=== PATIENT | female | born 1980 | race Two or more races ===

== ENCOUNTER 2018-11-28 20:19 | Emergency (ER) | payer SELFPAY ==
[~2018-11-28] VITALS: Ht 162.6 cm; Wt 99.8 kg
[2018-11-28] MEDS ORDERED: IBUPROFEN600 MG ORAL ×2 (20:55→23:26)
[2018-11-28 21:00] VITALS: BP 127/86
--- NOTE | 2018-11-28 21:00 | NUR ---
ED Nurse Note: pt was brought in by 68 from [facility] c/o ankle pain and hand pain x 1 week
--- NOTE | 2018-11-28 21:39 | Emergency Room Report ---
History of Present Illness General Chief Complaint: Pain Source: Patient Present Illness HPI Is a 38-year-old female with history of asthma. She has no diagnosis of an autoimmune disease. She presents with chief complaint of joint pain and foot pain. Onset for last 2 weeks now. No trauma. Throbbing in nature. Powell like her joints or swelling. Most her pain is not left foot and knee area. Pain is 10 out of 10. No trauma. No fever chills but no nausea no vomiting. She said her joints or swollen. Denies any recent viral infection. Allergies: Coded Allergies: No Known Allergies (Unverified , 11/28/18) Patient History Past Medical History: see triage record, old chart reviewed, asthma Past Surgical History: none Pertinent Family History: none Social History: Denies: smoking Last Menstrual Period: oct Now: No Immunizations: other Reviewed Nursing Documentation: PMH: Agreed; PSxH: Agreed Nursing Documentation-PMH Hx Asthma: Yes Hx Neurological Problems: Yes - cyatica Review of Systems Eye: Denies: eye pain, blurred vision ENT: Denies: ear pain, nose congestion, throat swelling Respiratory: Denies: cough, shortness of breath Cardiovascular: Denies: chest pain, palpitations Gastrointestinal: Denies: abdominal pain, diarrhea, nausea, vomiting Musculoskeletal: Reports: back pain, joint pain, joint swelling Skin: Denies: rash Neurological: Denies: headache, numbness Endocrine: Denies: increased thirst, increased urine Hematologic/Lymphatic: Denies: easy bruising All Other Systems: negative except mentioned in HPI Physical Exam Vital Signs Date Time Temp Pulse Resp B/P (MAP) Pulse Ox O2 Delivery O2 Flow Rate FiO2 11/28/18 20:52 98.8 80 16 127/86 100 Room Air vitals unremarkable Sp02 EP Interpretation: reviewed, normal General Appearance: well appearing, no apparent distress, alert Head: normocephalic, atraumatic Eyes: bilateral eye PERRL, bilateral eye EOMI ENT: hearing grossly normal, normal pharynx Neck: full range of motion, supple, no meningismus Respiratory: chest non-tender, lungs clear, normal breath sounds Cardiovascular #1: regular rate, rhythm, no murmur Gastrointestinal: normal bowel sounds, non tender, no mass, no organomegaly, no bruit, non-distended Musculoskeletal: back normal, other - She has diffuse joint edema mostly on the hands and ankle. Tender to palpation. No erythema. Psychiatric: mood/affect normal Skin: warm/dry Medical Decision Making Diagnostic Impression: Primary Impression: Polyarthralgia ER Course Patient presents with poly-joint arthralgia. This is probably an autoimmune disease. No evidence of septic joint. Inflammatory markers elevated. We'll discharge home. She will benefit from a rheumatology consult. Last Vital Signs Date Time Temp Pulse Resp B/P (MAP) Pulse Ox O2 Delivery O2 Flow Rate FiO2 11/28/18 20:52 98.8 80 16 127/86 100 Room Air Status: improved Disposition: HOME, SELF-CARE Condition: Stable Scripts Prednisone* (PREDNISONE*) 20 Mg Tablet 40 MG ORAL DAILY, #14 TAB Prov: Igor London MD 11/28/18 Ibuprofen* (MOTRIN*) 600 Mg Tablet 600 MG ORAL THREE TIMES A DAY, #30 TAB 0 Refills Prov: Igor London MD 11/28/18 Hydrocodone/Acetaminophen 5-325* (HYDROCODONE/ACETAMINOPHEN 5-325*) 1 Each Tablet 1 TAB ORAL Q6H PRN for For Pain, #20 TAB 0 Refills Prov: Igor London MD 11/28/18 Additional Instructions: Follow-up with your doctor in a week. You may benefit from referral to see a system administration manager to check for autoimmune disease. Return if symptom worsen. Igor London MD Nov 28, 2018 21:39
[2018-11-28] MEDS ORDERED: Dexamethasone 4mg/ml vial IVP ONE (21:45)
[2018-11-28] MEDS ORDERED: HYDROmorphone 1mg/ml Carpuject IVP ONE ×2 (21:45→23:15)
[2018-11-28 21:51] LABS: BASOPHILS % (AUTO) 0.9 % (0.0-2.0); EOSINOPHILS % (AUTO) 2.1 % (0.0-3.0); HEMATOCRIT 40.5 % (37.0-47.0); HEMOGLOBIN 13.5 G/DL (12.0-16.0); LYMPHOCYTES % (AUTO) 15.2 % (20.0-45.0); MEAN CORPUSCULAR VOLUME 88 FL (80-99); MONOCYTES % (AUTO) 4.3 % (1.0-10.0); NEUTROPHILS % (AUTO) 77.5 % (45.0-75.0); PLATELET COUNT 439 K/UL (150-450); RED BLOOD COUNT 4.59 M/UL (4.20-5.40); RED CELL DISTRIBUTION WIDTH 11.9 % (11.6-14.8); WHITE BLOOD COUNT 10.4 K/UL (4.8-10.8)
[2018-11-28 22:03] LABS: ANION GAP 10 mmol/L (5-15); BLOOD UREA NITROGEN 11 mg/dL (7-18); CALCIUM 9.5 MG/DL (8.5-10.1); CARBON DIOXIDE 25 MMOL/L (21-32); CHLORIDE 103 MMOL/L (98-107); CREATININE 0.7 MG/DL (0.55-1.30); POTASSIUM 3.5 MMOL/L (3.5-5.1); SODIUM 137 MMOL/L (136-145)
[2018-11-28 22:07] LABS: ALANINE AMINOTRANSFERASE 20 U/L (12-78); ALBUMIN 3.9 G/DL (3.4-5.0); ALBUMIN/GLOBULIN RATIO 0.9 (1.0-2.7); ALKALINE PHOSPHATASE 59 U/L (46-116); ASPARTATE AMINO TRANSFERASE 13 U/L (15-37); BILIRUBIN,TOTAL 0.2 MG/DL (0.2-1.0)
[2018-11-28] MEDS ORDERED: HYDROCODON-ACE1 EA15 ORAL (23:26)
[2018-11-28] MEDS ORDERED: PREDNISONE20 MG ORAL (23:26)
[2018-11-28 23:34] VITALS: BP 125/84
--- NOTE | 2018-11-28 23:34 | NUR ---
ER DISCHARGE NOTE: Patient is cleared to be discharged per ERMD, pt is aox4, on room air, with stable vital signs. pt was given dc and prescription instructions, pt was able to verbalize understanding, pt id band and iv site removed without complications. pt is able to ambulate with steady gait. pt took all belongings.
== END 2018-11-28 23:32 | disposition home or self-care (01) ==
LOC: EDBD 20:19 → EMR 22:00
DX: M25.50 Pain in unspecified joint (principal); J45.909 Unspecified asthma, uncomplicated
CPT/HCPCS: 36415; 80053; 85025; 85651; 86140; 96374; 96375; 96376; 99284; J1100; J1170; J2405

== ENCOUNTER 2018-12-07 10:08 | Inpatient (IN) | payer SELFPAY ==
[~2018-12-07] VITALS: Ht 162.6 cm; Wt 99.8 kg
[~2018-12-07 10:08] MED LIST: HYDROCODON-ACE1 EA15 ORAL; IBUPROFEN600 MG ORAL; PREDNISONE20 MG ORAL
[2018-12-07 10:33] VITALS: BP 125/68
--- NOTE | 2018-12-07 10:35 | NUR ---
ED Nurse Note: pt aao x4, walked in to ER c/o general body pain 10/10. accompanied by mother. calm and cooperative. general body non-pitting edema noted.
[2018-12-07] MEDS ORDERED: Solu-MEDROL 125mg Inj IVP ONE (11:00)
[2018-12-07] MEDS ORDERED: Ketorolac 30mg Inj IV ONE (11:00)
[2018-12-07] MEDS ORDERED: Morphine Sulfate 4mg/ml Inj (IV USE ONLY) IVP ONE (11:00)
[2018-12-07 11:18] LABS: APPEARANCE,URINE CLEAR; BILIRUBIN, URINE NEGATIVE (NEGATIVE); COLOR,URINE PALE YELLOW; GLUCOSE, URINE (UA) NEGATIVE (NEGATIVE); KETONES,URINE NEGATIVE (NEGATIVE); LEUKOCYTE ESTERASE ,URINE NEGATIVE (NEGATIVE); NITRITE,URINE NEGATIVE (NEGATIVE); PH,URINE 7 (4.5-8.0); PROTEIN,URINE NEGATIVE (NEGATIVE); UROBILINOGEN,URINE NORMAL MG/DL (0.0-1.0)
[2018-12-07 11:25] LABS: EOSINOPHILS % (AUTO) 3.5 % (0.0-3.0); HEMATOCRIT 39.9 % (37.0-47.0); HEMOGLOBIN 13.2 G/DL (12.0-16.0); LYMPHOCYTES % (AUTO) 18.3 % (20.0-45.0); MEAN CORPUSCULAR VOLUME 89 FL (80-99); MONOCYTES % (AUTO) 6.8 % (1.0-10.0); NEUTROPHILS % (AUTO) 70.4 % (45.0-75.0); PLATELET COUNT 370 K/UL (150-450); RED BLOOD COUNT 4.49 M/UL (4.20-5.40); RED CELL DISTRIBUTION WIDTH 12.1 % (11.6-14.8)
[2018-12-07 11:37] LABS: ANION GAP 13 mmol/L (5-15); BLOOD UREA NITROGEN 11 mg/dL (7-18); CALCIUM 9.1 MG/DL (8.5-10.1); CARBON DIOXIDE 24 MMOL/L (21-32); CHLORIDE 100 MMOL/L (98-107); CREATININE 0.7 MG/DL (0.55-1.30); POTASSIUM 4.4 MMOL/L (3.5-5.1); SODIUM 137 MMOL/L (136-145)
[2018-12-07 11:42] LABS: INR 0.9 (0.9-1.1)
[2018-12-07 11:48] LABS: ALANINE AMINOTRANSFERASE 19 U/L (12-78); ALBUMIN 3.4 G/DL (3.4-5.0); ALBUMIN/GLOBULIN RATIO 0.8 (1.0-2.7); ALKALINE PHOSPHATASE 43 U/L (46-116); ASPARTATE AMINO TRANSFERASE 11 U/L (15-37); BILIRUBIN,TOTAL 0.3 MG/DL (0.2-1.0); CREATINE KINASE 89 U/L (26-308)
[2018-12-07 12:00] VITALS: BP 141/75
--- NOTE | 2018-12-07 12:23 | Diagnostic Imaging Report ---
EXAM: XR Chest, 1 View CLINICAL HISTORY: CP TECHNIQUE: Frontal view of the chest. COMPARISON: No relevant prior studies available. FINDINGS: Lungs: Unremarkable. No consolidation. Pleural space: Unremarkable. No pneumothorax. Heart: Unremarkable. No cardiomegaly. Mediastinum: Unremarkable. Bones/joints: Unremarkable. IMPRESSION: Normal chest x-ray.
--- NOTE | 2018-12-07 12:38 | Diagnostic Imaging Report ---
EXAM: XR Left Hand Complete, 3 or More Views CLINICAL HISTORY: PAIN TECHNIQUE: Frontal, lateral and oblique views of the left hand. COMPARISON: No relevant prior studies available. FINDINGS: Bones/joints: Joint spaces are maintained. No acute fracture. No dislocation. Soft tissues: Soft tissue swelling. No radiopaque foreign body. IMPRESSION: 1. Soft tissue swelling. 2. No fracture or malalignment.
--- NOTE | 2018-12-07 13:10 | NUR ---
ED Nurse Note: Attempted to give report. nurse is not available. will try again in 10 minutes.
--- NOTE | 2018-12-07 13:30 | NUR ---
ED Nurse Note: Report given to Ann RN
[2018-12-07] MEDS ORDERED: Morphine Sulfate 4mg/ml Inj (IV USE ONLY) IVP PRN (13:45)
--- NOTE | 2018-12-07 14:11 | NUR ---
ED Nurse Note: pt transferred to MS unit with 1 compressor service technician after got another dose of 4mg Morphin IVP.
--- NOTE | 2018-12-07 14:49 | NUR ---
NURSE NOTES: received patient A/A/Ox4, able to make things known. roommate @ bedside. personal belongings reviewed and noted. IV access patent and intact. admission profile done. home meds done by ED, Elena. Left hand swollen, elevated with pillow. no acute resp distress noted. keep bed in the lowest position. siderails are up x2. call light is within reach. will cont to monitor.
[2018-12-07 15:00] VITALS: BP 111/71
--- NOTE | 2018-12-07 15:00 | NUR ---
NURSE NOTES: called Dr Abdi and spoke with Elizabeth from his office. Re; admission orders. awaiting for a call back. Addendum: 12/07/18 at 1551 by PAYAM NARVAEZ LVN NURSE NOTES: notified Dr Abdi for the second time for admission orders. awaits for a callback.
[2018-12-07] MEDS ORDERED: HYDROcodone/Acetamin 5/325 tab ORAL PRN (16:15)
--- NOTE | 2018-12-07 16:25 | Emergency Room Report ---
History of Present Illness General Chief Complaint: Pain Source: Patient Present Illness HPI The patient repeat presents with joint pain. She was seen here November 28 and says that she was evaluated and told that she does not have lupus (I cannot find serology). She had right wrist tenderness of redness and bumps. This was treated just with prednisone Grethel and Motrin. At wrist is improved somewhat. She's been trying to work but now has increased pain in her ankles knees and bilateral wrists. In addition her left thumb is now red and swollen and her hand is swollen also. She is unable to ambulate at this time without assistance. She was working yesterday at [employer]. Pain is rated 10/10. The left hand hurts more than her wrists knees and ankles but they are still also tender. The pain is aching and burning. There is slight radiation of the left hand pain into the forearm. She denies any trauma. The patient's has had chills. She denies having any fevers. No chest pain, nausea, dysuria, vomiting, headache, neck pain, abdominal pain. Family has a history of arthritis but not diagnosed with rheumatoid or other inherited arthritic conditions. The patient is quite upset about her disability. She is worried that she will not be able to walk and work. Allergies: Coded Allergies: No Known Allergies (Unverified , 11/28/18) Patient History Past Medical History: see triage record Social History: Reports: smoking; Denies: alcohol use, drug use Social History Narrative works at [employer] Last Menstrual Period: Oct Now: No : 1 Reviewed Nursing Documentation: PMH: Agreed; PSxH: Agreed Nursing Documentation-PMH Hx Cardiac Problems: No Hx Asthma: Yes Hx Cancer: No Hx Gastrointestinal Problems: Yes Hx Neurological Problems: No Review of Systems All Other Systems: negative except mentioned in HPI Physical Exam Vital Signs Date Time Temp Pulse Resp B/P (MAP) Pulse Ox O2 Delivery O2 Flow Rate FiO2 12/07/18 10:13 98.4 89 15 134/88 99 Room Air Sp02 EP Interpretation: reviewed, normal General Appearance: well appearing, no apparent distress, GCS 15 Head: normocephalic Eyes: bilateral eye normal inspection, bilateral eye PERRL ENT: moist mucus membranes Neck: supple Respiratory: lungs clear, normal breath sounds Cardiovascular #1: regular rate, rhythm Cardiovascular #2: 2+ radial (R) Gastrointestinal: normal inspection, normal bowel sounds, non tender, no mass, non-distended Musculoskeletal: back normal, no calf tenderness, decreased range of motion - Ankles and left thumb, swelling - Left thenar eminence, tender - Left thumb greater than wrists knees and ankles however all are tender. Neurologic: alert, oriented x3, grossly normal Psychiatric: depressed affect - Tearful and fearful Skin: normal color, warm/dry, other - erythema L thumb Medical Decision Making Diagnostic Impression: Primary Impression: Arthritis pain Additional Impression: Cellulitis Qualified Codes: L03.114 - Cellulitis of left upper limb ER Course Patient presents with polyarthritis and increased swelling and erythema of her left thumb. Differential includes lupus, rheumatoid arthritis, cellulitis versus septic joint of the left thumb amongst others. Evaluation will be with labs and x-ray of left hand. The patient will be treated with Solu-Medrol, Toradol. In addition blood cultures are obtained and she is started on vancomycin. EKG is obtained to exclude pericarditis. EKG normal. Chest x-ray no infiltrates. Left hand soft tissue swelling. CBC and CMP normal. Elevated sedimentation rate and C-reactive protein. Improved with decreased pain. Due to the possibility of debilitating and infection and debilitating polyarthritis the patient is admitted to the hospital for further evaluation and treatment. Admit med Dr. Abdi. Message left for Paco Brambila to request his consultation as a meeting specialist. Laboratory Tests Test 12/07/18 11:00 12/07/18 11:10 12/07/18 11:45 White Blood Count 9.0 K/UL (4.8-10.8) Red Blood Count 4.49 M/UL (4.20-5.40) Hemoglobin 13.2 G/DL (12.0-16.0) Hematocrit 39.9 % (37.0-47.0) Mean Corpuscular Volume 89 FL (80-99) Mean Corpuscular Hemoglobin 29.3 PG (27.0-31.0) Mean Corpuscular Hemoglobin Concent 33.0 G/DL (32.0-36.0) Red Cell Distribution Width 12.1 % (11.6-14.8) Platelet Count 370 K/UL (150-450) Mean Platelet Volume 6.6 FL (6.5-10.1) Neutrophils (%) (Auto) 70.4 % (45.0-75.0) Lymphocytes (%) (Auto) 18.3 % (20.0-45.0) L Monocytes (%) (Auto) 6.8 % (1.0-10.0) Eosinophils (%) (Auto) 3.5 % (0.0-3.0) H Basophils (%) (Auto) 1.0 % (0.0-2.0) Prothrombin Time 9.7 SEC (9.30-11.50) Prothrombin Time INR 0.9 (0.9-1.1) PTT 22 SEC (23-33) L Urine Color Pale yellow Urine Appearance Clear Urine pH 7 (4.5-8.0) Urine Specific Cassandra 1.005 (1.005-1.035) Urine Protein Negative (NEGATIVE) Urine Glucose (UA) Negative (NEGATIVE) Urine Ketones Negative (NEGATIVE) Urine Blood Negative (NEGATIVE) Urine Nitrite Negative (NEGATIVE) Urine Bilirubin Negative (NEGATIVE) Urine Urobilinogen Normal MG/DL (0.0-1.0) Urine Leukocyte Esterase Negative (NEGATIVE) Urine HCG, Qualitative Negative (NEGATIVE) Sodium Level 137 MMOL/L (136-145) Potassium Level 4.4 MMOL/L (3.5-5.1) Chloride Level 100 MMOL/L (98-107) Carbon Dioxide Level 24 MMOL/L (21-32) Anion Gap 13 mmol/L (5-15) Blood Urea Nitrogen 11 mg/dL (7-18) Creatinine 0.7 MG/DL (0.55-1.30) Estimate Glomerular Filtration Rate > 60 mL/min (>60) Glucose Level 91 MG/DL (74-106) Uric Acid 3.8 MG/DL (2.6-7.2) Calcium Level 9.1 MG/DL (8.5-10.1) Total Bilirubin 0.3 MG/DL (0.2-1.0) Aspartate Amino Transferase (AST) 11 U/L (15-37) L Alanine Aminotransferase (ALT) 19 U/L (12-78) Alkaline Phosphatase 43 U/L (46-116) L Total Creatine Kinase 89 U/L (26-308) Troponin I 0.000 ng/mL (0.000-0.056) C-Reactive Protein, Quantitative 4.4 mg/dL (0.00-0.90) H Pro-B-Type Natriuretic Peptide 39 pg/mL (0-125) Total Protein 7.8 G/DL (6.4-8.2) Albumin 3.4 G/DL (3.4-5.0) Globulin 4.4 g/dL Albumin/Globulin Ratio 0.8 (1.0-2.7) L Lactic Acid Level 1.20 mmol/L (0.4-2.0) Erythrocyte Sedimentation Rate 44 MM/HR (0-20) H EKG Diagnostic Results Rate: normal Rhythm: NSR ST Segments: no acute changes Rhythm Strip Diag. Results EP Interpretation: yes Rhythm: NSR, no PVC's, no ectopy Chest X-Ray Diagnostic Results Chest X-Ray Diagnostic Results : Chest X-Ray Ordered: Yes # of Views/Limited/Complete: 1 View Indication: Other EP Interpretation: Yes Interpretation: no consolidation, no effusion, no pneumothorax Impression: No acute disease Electronically Signed by: Electronically signed by Roberto Carlos Arnett MD Other X-Ray Diagnostic Results Other X-Ray Diagnostic Results : X-Ray ordered: Left-hand # of Views/Limited Vs Complete: 3 View Interpretation: no dislocation, no fractures, other - Soft tissue swelling Impression: Other Electronically Signed by: Electronically signed by Roberto Carlos Arnett MD Last Vital Signs Date Time Temp Pulse Resp B/P (MAP) Pulse Ox O2 Delivery O2 Flow Rate FiO2 12/07/18 15:00 98.2 83 20 111/71 (84) 97 12/07/18 14:10 Room Air Status: improved Disposition: ADMITTED INPATIENT Condition: Serious Referrals: NON PHYSICIAN (PCP) Roberto Carlos Arnett MD Dec 07, 2018 16:25
--- NOTE | 2018-12-07 16:59 | NUR ---
CASE MANAGEMENT: INITIAL REVIEW 38 YO F PRESENTED TO OUR ED FROM HOME CC: PAIN PMHx: ASTHMA. SCIATICA. SI:SEPTIC JOINT T 98.4 HR 89 RR 15 B/P 134/88 SATS 99% ON RA AST 11 ALP 43 IS: NS BOLUS X1 MORPHINE IV X1 ZOFRAN IV X1 TORADOL IV X1 SOLU MEDROL IV X1 PATIENT ADMITTED TO MED/SURG 12/07/2018 @ 1249 DCP: PATIENT TO BE DISCHARGED TO HOME ONCE MEDICALLY CLEARED. Addendum: 12/07/18 at 1912 by Cinthya Fitch CM [employer] SECOND[employer]
[2018-12-07] MEDS: Vancomycin 1.5gm/D5W 275ml IVPB SCH ×2 (17:59)
--- NOTE | 2018-12-07 19:25 | NUR ---
HAND-OFF: Report given to
--- NOTE | 2018-12-07 19:26 | NUR ---
NURSE NOTES: Report taken from JARROD Ferguson. Patient awake and in bed, A&Ox4, family at bedside. No signs of distress on room air. Is complaining of generalized pain. Most of the pain is in the right hand, tender to the touch, 8/10. Is having some radiating pain through the right leg, some minor swelling noted. IV site c/d/i and patent. No skin issues present. Continue to monitor pain and swelling, bed in lowest position, call light within reach.
[2018-12-07 20:00] VITALS: BP 130/69
[2018-12-07] MEDS ORDERED: Solu-MEDROL 40mg Inj IVP SCH (21:30)
[2018-12-07] MEDS: Piperacillin/Tazobactam 3.375 GM in D5W 110 ML IVPB SCH ×2 (23:35→23:53)
[2018-12-08] VITALS: BP 136/71
--- NOTE | 2018-12-08 01:45 | History and Physical Report ---
DATE OF ADMISSION: 12/07/2018 ADDENDUM: Currently unable to walk because of knee pain and ankle pain, also right hand, unable to close. PAST MEDICAL HISTORY: None known. PHYSICAL EXAMINATION: GENERAL: This is an elderly, obese female, who is currently in the bed, comfortable. VITAL SIGNS: Blood pressure is 100/40 and pulse 74. HEENT: NAD. CHEST: Bilaterally clear. CARDIOVASCULAR: Regular rhythm. No gallop. No murmur. ABDOMEN: Soft. EXTREMITIES: No CCE. Diffuse tenderness on the right wrist, right hand, and right ankle as well as knee. ASSESSMENT: 1. Possible septic arthritis. 2. Gout. PLAN: We will start her on IV Solu-Medrol and [place]. Consider Hematology consult. Rei Abdi M.D. DR: BLAS JOB#: [id number] CC:
[2018-12-08 04:00] VITALS: BP 112/66
[2018-12-08] MEDS: Morphine Sulfate 2mg/ml Inj(IV/IM USE ONLY) IVP PRN ×2 (06:02→16:12)
[2018-12-08] MEDS: Vancomycin 1.5gm/D5W 275ml IVPB SCH ×2 (06:10)
--- NOTE | 2018-12-08 07:30 | NUR ---
HAND-OFF: Report given to JARROD Cabrera. Patient awake, VS stable.
[2018-12-08 08:00] VITALS: BP 116/69
[2018-12-08] MEDS ORDERED: Piperacillin/Tazobactam 3.375 GM in D5W 110 ML IVPB SCH (08:00)
--- NOTE | 2018-12-08 08:26 | NUR ---
NURSE NOTES: Pt awake, breathing room air, call light in reach. Friend at bedside. Denies pain at this time. Able to verbalize known needs. Pt is ambulatory. Encouraged to walk to loosen joint stiffness. Current plan of care will be followed
[2018-12-08] MEDS: Solu-MEDROL 40mg Inj IVP SCH (08:53)
--- NOTE | 2018-12-08 13:51 | NUR ---
NURSE NOTES: PT CURRENTLY SITTING UP IN BED. NO COMPLAINTS AT THIS TIME. CALL LIGHT IS IN REACH. PT REQUESTED A DR EXCUSE FROM DR DEL ANGEL , PROVIDED BY HIM. PT REFERRED TO FOOD PROCESSOR. OUTBOARD SYSTEM OPERATOR GAVE PT SPECIALIST NUMBER TO PT .
--- NOTE | 2018-12-08 14:55 | NUR ---
CASE MANAGEMENT:REVIEW 12/08/18 SI: POSSIBLE SEPTIC ARTHRITIS 98.3 79 18 116/69 99% ON RA IS: IV SOLUMEDROL QD IV VANCOMYCIN Q12 IV MORPHINE Q6HRS PRN :MED/SURG [facility]
--- NOTE | 2018-12-08 15:00 | NUR ---
NURSE NOTES: PT HAS PENDING DISCHARGE AFTER CLEARED BY PT. PT IS CURRENTLY COMFORTABLE CALL LIGHT IS IN REACH. CURRENT PLAN OF CARE WILL BE FOLLOWED
--- NOTE | 2018-12-08 15:38 | Infectious Diseases Prog Note ---
Assessment/Plan Problems: (1) Wrist joint inflamed Assessment & Plan: septic VS inflammatory , continue vancomycin and zosyn empirically , recommend ortho eval for possible joint aspiration (2) Hand arthritis Assessment & Plan: RA VS lupus VS gout flare , VS septic joints , continue wide spectrum antibiotics pending RA, LISSETT, recommend ortho eval (3) Arthritis pain Assessment & Plan: continue pain management as per primary (4) Cellulitis Assessment & Plan: of the right hand/wrist , inflammatory VS infectious , agree on wide spectrum antibiotics pending serology and ortho eval Subjective Allergies: Coded Allergies: No Known Allergies (Unverified , 11/28/18) Objective Vital Signs Last 24 Hour Vital Signs Date Time Temp Pulse Resp B/P (MAP) Pulse Ox O2 Delivery O2 Flow Rate FiO2 12/08/18 09:00 Room Air 12/08/18 08:00 98.3 79 18 116/69 (85) 99 12/08/18 04:00 98.3 77 18 112/66 (81) 100 12/08/18 00:00 98.2 98 18 136/71 (92) 95 12/07/18 22:39 Room Air 12/07/18 20:00 99.3 84 18 130/69 (89) 99 Height (Feet): 5 Height (Inches): 4.00 Weight (Pounds): 220 Laboratory Tests Test 12/08/18 06:17 Rheumatoid Factor Screen Pending Anti-Nuclear Antibody Screen Pending Current Medications Medications (Trade) Dose Ordered Sig/Alek Route PRN Reason Start Time Stop Time Status Last Admin Dose Admin Acetaminophen (Tylenol) 650 mg Q4H PRN ORAL Mild Pain/Temp > 100.5 12/07/18 16:15 01/06/19 16:14 12/08/18 08:53 Acetaminophen/ Hydrocodone Bitart ([place] 5/325) 1 tab Q6H PRN ORAL moderate pain (4-6) 12/07/18 21:15 12/14/18 16:14 Methylprednisolone Sodium Succinate (Solu-MEDROL) 40 mg DAILY IVP 12/08/18 09:00 01/07/19 08:59 12/08/18 08:53 Morphine Sulfate (Morphine Sulfate) 0.5 mg Q6H PRN IVP Severe Pain (Pain Scale 7-10) 12/07/18 20:45 12/14/18 20:44 12/08/18 06:02 Vancomycin HCl (Vanco rx to dose) 1 ea DAILY PRN MISC Per rx protocol 12/07/18 16:15 01/06/19 16:14 Vancomycin HCl 1.5 gm/Dextrose 275 ml @ 137.5 mls/ hr Q12HR@0600,1800 IVPB 12/07/18 18:00 12/12/18 17:59 12/08/18 06:10 Navneet Ibarra M.D. Dec 08, 2018 15:38
[2018-12-08 16:00] VITALS: BP 139/86
--- NOTE | 2018-12-08 19:40 | NUR ---
NURSE NOTES: Received report & pt from JARROD Yarbrough. Pt lying in bed, a&ox4, in room air. No s/s of acute distress & c/o 8/10 pain. Will give PRN pain med when due & pt verbalized understanding. IV site intact & S/L'd. Skin intact. Bed in lowest position,call light within reach. Will continue to monitor.
[2018-12-08 20:00] VITALS: BP 135/83
--- NOTE | 2018-12-08 20:06 | NUR ---
HAND-OFF: Report given to DENIS GARAY.
[2018-12-08] MEDS: HYDROcodone/Acetamin 5/325 tab ORAL PRN (20:08)
[2018-12-09 04:00] VITALS: BP 136/89
--- NOTE | 2018-12-09 07:38 | NUR ---
HAND-OFF: Report written through SBAR paper to JARROD Yarbrough. CARLO carmichael.
[2018-12-09 08:00] VITALS: BP 142/90
--- NOTE | 2018-12-09 08:08 | NUR ---
NURSE NOTES: Pt awake sitting up at bedside, able to verbalize known needs. Mood appears uplifted, this morning. Current plan of care will be followed. Pt is pending to be reviewed with physical therapy for clearance for discharge
[2018-12-09] MEDS: HYDROcodone/Acetamin 5/325 tab ORAL PRN (09:08)
[2018-12-09] MEDS: Solu-MEDROL 40mg Inj IVP SCH (09:08)
--- NOTE | 2018-12-09 09:10 | NUR ---
PT EVALUATION NOTE Patient evaluated by PT. Patient demonstrates independence with all functional mobility without an assistive device. Skilled inpatient PT intervention not indicated, patient discharged from PT, Shannan GARAY notified.
--- NOTE | 2018-12-09 11:02 | NUR ---
NURSE NOTES: Dr Abdi informed that pt was cleared for discharge, per report of physical therapy pt will benefit from out patient therapy
[2018-12-09] MEDS ORDERED: PREDNISONE5 M4 PO (11:52)
[2018-12-09] MEDS ORDERED: PREDNISONE10 M2 PO (11:55)
[2018-12-09] MEDS ORDERED: IBUPROFEN600 MG ORAL (12:00)
[2018-12-09] MEDS ORDERED: PRILOSEC OTC20 MG ORAL (12:02)
[2018-12-09] MEDS ORDERED: Tubing IV Secondary IV ONE (13:15)
--- NOTE | 2018-12-09 13:20 | NUR ---
NURSE NOTES: Pt discharge home, with prescriptions and referral to adjunct nursing faculty, per Dr. Abdi. Pt cleared by physical therapy earlier in shift. IV removed as well as arm band. Discharge packet , and pt teaching provided. Verbalized understanding. Pt is ambulatory discharged with belongings, in stable condition.
--- NOTE | 2018-12-09 13:51 | Discharge Summary ---
DATE OF ADMISSION: 12/07/2018 DATE OF DISCHARGE: 12/08/2018 The patient is going to continue regular activity. The patient also was receiving physical therapy here and going to continue exercise at home. ACTIVITY: As tolerated. DIET: Regular diet. MEDICATIONS: See the list and recommended . Rei Abdi M.D. DR: ROVERTO JOB#: [id number] CC:
--- NOTE | 2018-12-09 13:51 | Progress Note ---
DATE: 12/08/2018 SUBJECTIVE: This is a young 38-year-old female, came to the emergency room for intractable pain multiple joints on the ankle, left knee, and hand. The patient is doing better today. Her pain has subsided about 50 to 80%. The patient also to able move on the knee as well as hand. OBJECTIVE: VITAL SIGNS: Her current vital signs, blood pressure 116/69, pulse 79, no fever. HEENT: NAD. CHEST: Bilaterally clear. CARDIOVASCULAR: Regular rhythm. ABDOMEN: Soft. EXTREMITIES: Mild stiffness on the right knee is improving. Also stiffness on the fingers on left hand is improving. X-RAYS: Hand x-ray, soft tissue swelling. No fracture of malignant. Chest x-ray is negative. ASSESSMENT AND PLAN: Probably rheumatoid arthritis. The patient was given Solu-Medrol. She is improved. The patient going to get a prescription for p.o. prednisone as well as ibuprofen. Risks versus benefits are explained for both medicines with the charge nurse and the patient. The patient understood the risks. She can follow up with the it sales representative as outpatient. Blood tests are negative. White counts are normal. It does not look like septic arthritis. The patient can continue physical therapy and follow up with outpatient. Recommended off work for 1 week and follow up with primary care or it sales representative as outpatient. The patient was also given the number, name, and address for the it sales representative, Dr. Jack Cagle. Rei Abdi M.D. DR: ROVERTO JOB#: [id number] CC:
--- NOTE | 2018-12-09 19:14 | Cardiology Report ---
APPROVED REPORT EKG Measurement Heart [id number] Normal sinus rhythm Normal ECG
--- NOTE | 2018-12-09 23:00 | Consultation ---
DATE OF CONSULTATION: 12/08/2018 INFECTIOUS DISEASE CONSULTATION CONSULTING PHYSICIAN: Navneet Ibarra M.D. REQUESTING PHYSICIAN: Jarrod Abdi M.D. REASON FOR CONSULTATION: Joint swelling and pain mainly in the right hand, wrist, and ankles, possible septic joint, recommendation for antibiotics treatment. HISTORY OF PRESENT ILLNESS: The patient is a 38-year-old female with past medical history of arthritis in the past, asthma, gastroesophageal reflux disease, presented to [facility] emergency room with diffuse joint pain and swelling mainly in the right hand, wrist, right thumb, and her ankles. The patient visited the hospital on November 28 for similar scenario and she was told that she did not have lupus. The patient complained of right wrist tenderness and redness with bumps and decreased range of motion. The patient was treated with prednisone, [place], and Motrin and her symptoms improved somehow in the past. Today, her pain has been getting worse to the point that limited her activity to work and it has gotten worse in her ankle and wrist. Her left thumb is also red and swollen and her hand is swollen. She could not ambulate. Pain was 10/10 in her left hand and ankles. Denied any trauma or fall. The patient was admitted to the hospital and started on vancomycin and steroid and Infectious Disease consultation was requested for antibiotics treatment and further management. REVIEW OF SYSTEMS: A 14-point of system reviewed were all negative apart from the one I mentioned above in my History and Physical. PAST MEDICAL HISTORY: Significant for some arthritis, asthma, and GERD. PAST SURGICAL HISTORY: Negative. ALLERGIES: No known drug allergy. SOCIAL HISTORY: She works at [employer]. Denied using any drugs, tobacco, or alcohol. ALLERGIES: No known drug allergy. MEDICATIONS: She is on vancomycin and steroid. PHYSICAL EXAMINATION: VITAL SIGNS: Temperature 99, pulse 80, respirations 20, blood pressure 139/86, and saturation 93% on room air. GENERAL: Young female, lying in bed, awake, alert, not in distress. HEENT: Normocephalic and atraumatic. Pupils are reactive. NECK: Supple. CARDIOVASCULAR: Regular rate and rhythm. LUNGS: Clear. ABDOMEN: Soft, nontender, and nondistended,. EXTREMITIES: She had right wrist and hand redness and swelling mainly in the left thumb. Her ankles also are swollen and tender. No significant skin erythema. LABORATORY AND DIAGNOSTIC DATA: Labs showed white count of 9000, hemoglobin of 13. BUN of 11, creatinine of 0.7. Urinalysis negative for UTI. Microbiology, blood culture x2 so far has been negative. Imaging, hand x-ray on the left showed soft tissue swelling, no fracture or malalignment. Chest x-ray was normal. ASSESSMENT AND RECOMMENDATION: 1. Wrist joint inflamed, septic versus inflammatory. Continue vancomycin. Add Zosyn empirically. Recommend ortho evaluation and Dermatology followup. I agree on workup for autoimmune arthritis. 2. Hand arthritis, rheumatoid versus lupus versus gout flare versus septic joint. Continue antibiotics pending rheumatoid arthritis LISSETT. Recommend ortho evaluation. 3. Arthritis pain. Continue pain management as per primary. 4. Cellulitis of the right hand, inflammatory versus infectious. Agree on wide-spectrum antibiotics pending serology and ortho evaluation. Thank you for the consult. Infectious Disease will continue to follow. Navneet Ibarra M.D. DR: OPAL JOB#: [id number] CC: PRICILA
--- NOTE | 2018-12-16 08:24 | Discharge Summary ---
Discharge Summary Discharge Summary _ DATE OF ADMISSION: 12/07/2018 DATE OF DISCHARGE: 12/09/2018 DISCHARGED BY: Dr. Abdi REASON FOR ADMISSION: 38 years old female with past medical history of asthma, heartburn, sciatica, presented to emergency department with right wrist joint pain. She reported right wrist tenderness, redness and bumps. In addition her left thumb was red and swollen. She was unable to ambulate without assistance. Patient reported pain 10 out of 10, on a scale 1-10. Pain reported as aching and burning. She denied any trauma. Patient reported chills. She denied having any fevers. She denied chest pain, nausea,, dysuria vomiting, headache, neck pain, abdominal pain. Family history significant for arthritis, but no evidence of rheumatoid arthritis or other inherited arthritic condition. Upon evaluation vital signs were stable. Laboratory workup revealed no leukocytosis, stable hemoglobin and hematocrit. Urinalysis was negative for evidence of UTI. Stable electrolytes and renal parameters. Uric acid within normal limits. Lactic acid 1.2. Stable LFT. Troponin negative. Elevated inflammatory markers : CRP 4.4 , ESR 44. EKG revealed sinus rhythm, no acute ischemic changes. Chest x-ray demonstrated no acute cardiopulmonary pathology. Patient was admitted for further management. CONSULTANTS: ID specialist Dr. Ibarra [facility] COURSE: Patient admitted to medical surgical floor. ID consult was requested. Right wrist joint was inflamed , septic versus inflammatory. Patient was on empiric antibiotic with vancomycin and Zosyn as per ID specialist recommendation. Rheumatoid factor and LISSETT panel were ordered. At the time of date of the dictation rheumatoid factor elevated 19.5, LISSETT screen is still pending. Blood cultures were negative. Laboratory workup was unremarkable. Patient was working with physical therapist. Patient was taught exercises to improve balance and mobility Pain management was addressed with NSAID/Motrin. GI prophylaxis provided. Short course of Prednisone started, to be completed at home. No leukocytosis, unlikely septic arthritis. Patient clinically improved. Pain controlled. Patient will require further outpatient workup for autoimmune arthritis, likely rheumatoid arthritis. Patient was stable for discharge home. Prescription provided for Prednisone and Motrin. Outpatient follow-up with utility porter, referral provided. FINAL DIAGNOSES: Probably rheumatoid arthritis Right wrist pain likely due to arthritis Possible cellulitis of the right hand/wrist DISCHARGE MEDICATIONS: See Medication Reconciliation list. DISCHARGE INSTRUCTIONS: Patient was discharged home. Outpatient follow-up with utility porter for workup of autoimmune arthritis. I have been assigned to dictate discharge summary for this account. I was not involved in the patient's management. Diana Armijo NP Dec 16, 2018 08:24
== END 2018-12-09 13:16 | disposition home or self-care (01) | DRG 546 ==
LOC: EMR 10:29 → EDBEDREQ 12:34 → 3E 12:49 → EDBEDREQ 12:54
DX: M06.89 Other specified rheumatoid arthritis, multiple sites (principal); L03.113 Cellulitis of right upper limb; M06.831 Other specified rheumatoid arthritis, right wrist; K21.9 Gastro-esophageal reflux disease without esophagitis; J45.909 Unspecified asthma, uncomplicated
CPT/HCPCS: 36415; 71045; 80053; 81003; 81025; 82550; 83605; 83880; 84484; 84550; 85025; 85610; 85651; 85730; 86039; 86140; 86431; 87040; 93005; 96361; 96374; 96375; 99285; J2405

== ENCOUNTER 2019-02-13 07:07 | Emergency (ER) | payer MEDICAID ==
[~2019-02-13] VITALS: Ht 162.6 cm; Wt 115.7 kg
[~2019-02-13 07:07] MED LIST changes: +PREDNISONE10 M2 PO; +PREDNISONE5 M4 PO; +PRILOSEC OTC20 MG ORAL
[2019-02-13] MEDS ORDERED: NAPROXEN250 M1 PO (07:17)
[2019-02-13 07:19] VITALS: BP 135/86
--- NOTE | 2019-02-13 07:34 | NUR ---
ED Nurse Note: pt came in from home c/o ankle pain hand and elbow pain ermd at bedside awaiting orders.
[2019-02-13] MEDS ORDERED: Dexamethasone 4mg/ml vial IM ONE (07:45)
[2019-02-13] MEDS ORDERED: HYDROmorphone 1mg/ml Carpuject IM ONE ×2 (07:45→08:30)
[2019-02-13] MEDS ORDERED: NORCO 10-325 T1 EACH ORAL (08:39)
[2019-02-13] MEDS ORDERED: PREDNISONE20 MG ORAL (08:39)
--- NOTE | 2019-02-13 08:47 | Emergency Room Report ---
History of Present Illness General Chief Complaint: General Complaint Source: Patient Present Illness HPI 38-year-old female presents ED for evaluation. Patient presents ED complaining of left ankle and right hand pain and swelling. Denies any fall or injury. Started yesterday. States she has been diagnosed with rheumatoid arthritis. States that she was taking steroids up to a month ago. Has taken naproxen without relief. Is currently awaiting rheumatology referral through [facility]. Pain is throbbing, 10 out of 10, nonradiating. Denies fevers or chills. No other aggravating relieving factors. Denies any other associated symptoms Allergies: Coded Allergies: No Known Allergies (Unverified , 02/13/19) Patient History Past Medical History: asthma, other - sciatica, rheumatoid arthritis Last Menstrual Period: 02/07/19 Now: No Reviewed Nursing Documentation: PMH: Agreed; PSxH: Agreed Nursing Documentation-PMH Past Medical History: No Stated History Hx Cardiac Problems: No Hx Asthma: Yes Hx Cancer: No Hx Gastrointestinal Problems: Yes Hx Neurological Problems: Yes - SCIATICA Review of Systems All Other Systems: negative except mentioned in HPI Physical Exam Vital Signs Date Time Temp Pulse Resp B/P (MAP) Pulse Ox O2 Delivery O2 Flow Rate FiO2 02/13/19 07:10 98.4 86 16 135/86 (102) 97 Room Air Sp02 EP Interpretation: reviewed, normal General Appearance: alert, GCS 15, non-toxic, mild distress Head: normocephalic, atraumatic Eyes: bilateral eye normal inspection, bilateral eye PERRL ENT: hearing grossly normal, normal pharynx, no angioedema, normal voice Neck: full range of motion, supple/symm/no masses Respiratory: chest non-tender, lungs clear, normal breath sounds, speaking full sentences Cardiovascular #1: regular rate, rhythm, no edema Cardiovascular #2: 2+ carotid (R), 2+ carotid (L), 2+ radial (R), 2+ radial (L) , 2+ dorsalis pedis (R), 2+ dorsalis pedis (L) Gastrointestinal: normal bowel sounds, non tender, soft, non-distended, no guarding, no rebound Rectal: deferred Genitourinary: normal inspection, no CVA tenderness Musculoskeletal: back normal, gait/station normal, normal range of motion, tender - R hand, L ankle Neurologic: alert, oriented x3, responsive, motor strength/tone normal, sensory intact, speech normal Psychiatric: judgement/insight normal, memory normal, mood/affect normal, no suicidal/homicidal ideation Reflexes: 3+ bicep (R), 3+ bicep (L), 3+ tricep (R), 3+ tricep (L), 3+ knee (R) , 3+ knee (L) Skin: normal color, no rash, warm/dry, well hydrated Lymphatic: no adenopathy Medical Decision Making Diagnostic Impression: Primary Impression: Flare of rheumatoid arthritis ER Course 38-year-old female presents ED complaining of right hand and left ankle pain and swelling. History of rheumatoid arthritis Differentialchronic pain, septic joint, gout, rheumatoid arthritis Patient placed on stretcher. After initial history physical exam reveals obese female in mild distress. On exam there is swelling to the right hand and to the left ankle. No erythema or induration. No crepitus or bruising. I reviewed EMR. Patient had been here twice in November for similar presentation. Patient had been admitted on second visit for flare of rheumatoid arthritis. Septic joint ruled out at that time. I have no suspicion for septic joint at this time. Patient is currently not taking prednisone and states that it was controlling her symptoms. I explained to the patient that we can prescribe a 5 day burst of steroids. However I explained the concern of prolonged steroid use. Patient will need to follow-up with PMD to determine whether prolonged steroids is the best option for her Patient given IM Dilaudid and Decadron here with pain somewhat improved. I did offer option for admission for pain control but patient declined. States that she would prefer to follow-up with [facility] with a bar welder Diagnosisflare of rheumatoid arthritis Stable and discharged to home with prescription for prednisone, norco. followup with PMD/rheumatology. return to ED if symptoms recur/worsen Last Vital Signs Date Time Temp Pulse Resp B/P (MAP) Pulse Ox O2 Delivery O2 Flow Rate FiO2 02/13/19 08:28 98.4 02/13/19 07:20 86 16 Room Air 02/13/19 07:19 135/86 97 Status: improved Disposition: HOME, SELF-CARE Condition: Stable Scripts Hydrocodone Bit/Acetaminophen 10-325* (NORCO 10-325*) 1 Each Tablet 1 TAB ORAL Q6H PRN for For Pain, #12 TAB 0 Refills PRN PAIN Prov: Jesus Simon MD 02/13/19 Prednisone* (PREDNISONE*) 20 Mg Tablet 40 MG ORAL DAILY for 5 Days, TAB Prov: Jesus Simon MD 02/13/19 Referrals: NOT CHOSEN IPA/,REFERRING (PCP) Patient Instructions: Rheumatoid Arthritis, [id number] Additional Instructions: followup with your PMD and see bar welder Jesus Simon MD February 13, 2019 08:47
[2019-02-13 08:50] VITALS: BP 130/85
--- NOTE | 2019-02-13 08:52 | NUR ---
ED Nurse Note: meds well tolerated pt hilda nice and script verbalized understanding wheelchaired out by flake or shred roll operator to car pt accompanied by god mother.
== END 2019-02-13 08:57 | disposition home or self-care (01) ==
LOC: EMR 07:23
DX: M06.9 Rheumatoid arthritis, unspecified (principal); J45.909 Unspecified asthma, uncomplicated
CPT/HCPCS: 96372; 99283; J1100; J1170

== ENCOUNTER 2020-06-11 09:06 | Emergency (ER) | payer MEDICAID, OTHER ==
[~2020-06-11] VITALS: Ht 162.6 cm; Wt 113.4 kg
[~2020-06-11 09:06] MED LIST changes: +NAPROXEN250 M1 PO; +NORCO 10-325 T1 EACH ORAL
[2020-06-11 09:27] VITALS: BP 169/70
--- NOTE | 2020-06-11 09:27 | NUR ---
ED Nurse Note: pt wheeled in to ED from home due to severe right foot pain 06/16, pt states "It feels like it's going to explode," pt reports history of arthritis, denies trauma to extremity. Foot is intact, pulses strong bilaterally, no swelling, no redness noted.
--- NOTE | 2020-06-11 09:29 | Emergency Room Report ---
History of Present Illness General Chief Complaint: Pain Source: Patient Present Illness HPI Disclaimer: Please note that this report is being documented using DRAGON technology. This can lead to erroneous entry secondary to incorrect interpretation by the dictating instrument. HPI: 40-year-old female history of rheumatoid arthritis presents for evaluation of right foot and ankle pain. Patient was in his usual state of health yesterday denying trauma or injury to the right foot and ankle but then noted progressive swelling and pain throughout the evening. Allen throbbing in the lateral portion of the ankle and in the midfoot. Patient states this is consistent with her rheumatoid arthritis flareups. She has been treated with methotrexate, Motrin but is no longer taking prednisone due to weight gain. She follows with retail and restaurant associate, Dr. Stone, at [facility]. Has an appointment to see Dr. Stone next month. Denies fever, chills, cough, shortness of breath. Denies history of diabetes or renal injury. PMH: Asthma, sciatica, rheumatoid arthritis, obesity PSH: Reviewed Allergies: Reviewed Social Hx: Reviewed Allergies: Coded Allergies: No Known Allergies (Unverified , 02/13/19) COVID-19 Screening Contact w/high risk pt: No Experienced COVID-19 symptoms?: No COVID-19 Testing performed SHIPSMITH: No Patient History Last Menstrual Period: na Nursing Documentation-PMH Past Medical History: No History, Except For Hx Cardiac Problems: No - rheumatoid arthritis Hx Asthma: Yes Hx Cancer: No Hx Gastrointestinal Problems: Yes Hx Neurological Problems: Yes - SCIATICA Review of Systems All Other Systems: negative except mentioned in HPI Physical Exam Vital Signs Date Time Temp Pulse Resp B/P (MAP) Pulse Ox O2 Delivery O2 Flow Rate FiO2 06/11/20 09:25 98.1 91 18 174/40 (84) 98 Room Air General: Awake and alert, appears uncomfortable, crying, emotional HEENT: NC/AT. EOMI. Resp: Normal work of breathing Skin: Intact. No abrasions, laceration or rash over the exposed skin MSK: Normal tone and bulk. Moving all extremities. No obvious deformity. Mild edema over the lateral malleolus of the right ankle and tenderness to palpation over the anterior posterior aspect as well as the midfoot region in the lateral aspect of the right foot from the calcaneus through the metatarsals. No overlying erythema, skin breakdown, ulceration, bleeding, fluctuant masses or other findings. Limited dorsiflexion and plantarflexion secondary to pain. Neuro: Awake and alert. Mentating appropriately Medical Decision Making Diagnostic Impression: Primary Impression: Flare of rheumatoid arthritis ER Course 40-year-old female presents for evaluation of right ankle and foot pain without injury. Differential includes is not limited to gout, osteoarthritis, rheumatoid arthritis, septic arthritis among others. No injury/trauma was reported by patient and therefore of little concern for fracture dislocation. Do not believe x-rays or other imaging indicated at this time. The patient states she has had extensive testing for gout and is always returned negative. Believes this is a flare of her rheumatoid arthritis. No history of IV drug abuse, injectable drugs, recent illness to suggest a septic joint. Will treat with steroids, analgesics. Lidocaine injected around the ankle for analgesia. Moderate effect. Will start patient on steroid course and provide pain medication. We will follow-up with her retail and restaurant associate. Instructed to return with new or worsening symptoms. She understands and agrees with the treatment plan. Last Vital Signs Date Time Temp Pulse Resp B/P (MAP) Pulse Ox O2 Delivery O2 Flow Rate FiO2 06/11/20 09:25 98.1 91 18 174/40 (84) 98 Room Air Disposition: HOME, SELF-CARE Condition: Stable Scripts Prednisone* (PREDNISONE*) 20 Mg Tablet 40 MG ORAL DAILY for 5 Days, #10 TAB Prov: Heriberto Saenz MD 06/11/20 Hydrocodone Bit/Acetaminophen 10-325* (NORCO 10-325*) 1 Each Tablet 1 TAB ORAL Q6H PRN for For Pain, #12 TAB 0 Refills PRN PAIN Prov: Hreiberto Saenz MD 06/11/20 Referrals: NON PHYSICIAN (PCP) Heriberto Saenz MD Jun 11, 2020 09:29
[2020-06-11] MEDS ORDERED: Morphine Sulfate 2mg/ml Inj(IV/IM USE ONLY) IM ONE (09:30)
[2020-06-11] MEDS ORDERED: Lidocaine 1% Plain 30 ml INJ ONE (10:30)
[2020-06-11] MEDS ORDERED: NORCO 10-325 T1 EACH ORAL (11:15)
[2020-06-11] MEDS ORDERED: PREDNISONE20 MG ORAL (11:15)
[2020-06-11] MEDS ORDERED: Hydromorphone 0.5mg/0.5ml inj SUBQ ONE (11:15)
[2020-06-11 12:09] VITALS: BP 155/69
--- NOTE | 2020-06-11 12:09 | NUR ---
ER DISCHARGE NOTE: Patient is cleared to be discharged per ERMD, pt is aox4, on room air, with stable vital signs. pt was given dc and prescription instructions, pt was able to verbalize understanding, pt id band removed. pt is able to ambulate with steady gait. pt took all belongings.
== END 2020-06-11 12:09 | disposition home or self-care (01) ==
LOC: EMR 09:26
DX: M06.9 Rheumatoid arthritis, unspecified (principal)
CPT/HCPCS: 96372; J1170; J2001; J2270; J7512; Z7502; 99283

== ENCOUNTER 2020-08-28 03:23 | Emergency (ER) | payer OTHER ==
[~2020-08-28] VITALS: Ht 162.6 cm; Wt 111.1 kg
[2020-08-28 03:45] VITALS: BP 160/106
[2020-08-28] MEDS ORDERED: Augmentin 875mg Tab ORAL ONE (03:45)
[2020-08-28] MEDS ORDERED: Tylenol #3 tab (300mg/30mg) ORAL ONE (03:45)
--- NOTE | 2020-08-28 03:46 | NUR ---
Nurse Note: Pt walked in c/o sore throat since 3 days. PT stated pain when eating, talking. No white patches; swelling noted. MD assessed pt.
[2020-08-28] MEDS ORDERED: AUGMENTIN 875-1 EAC1 ORAL (03:49)
[2020-08-28] MEDS ORDERED: ACETAMINOPHEN-1 EAC1 ORAL (03:49)
[2020-08-28 04:10] VITALS: BP 150/92
--- NOTE | 2020-08-28 04:10 | NUR ---
ED Nurse Note: Pt cleared by health care Provider for discharge. DC instructions/prescription was given and explained to pt and verbalized understanding of teachings. Instructed pt to follow up with PCP within 3-7 days. All medical deviecs such as ID band removed. Pt is AAO x4, ambulatory and left with all personal belongings.
--- NOTE | 2020-08-28 22:43 | Emergency Room Report ---
History of Present Illness General Chief Complaint: Sore Throat Source: Patient Present Illness HPI 40-year-old female presents for evaluation. Noting sore throat x2 days. Pain is dull, 10 out of 10, nonradiating. States it hurts to swallow. Denies fevers or chills. Denies cough. Denies sick contacts or recent travel. No other aggravating relieving factors. Denies any other associated symptoms Allergies: Coded Allergies: No Known Allergies (Unverified , 02/13/19) COVID-19 Screening Contact w/high risk pt: No Experienced COVID-19 symptoms?: Yes COVID-19 Testing performed AIR SUPPORT OPERATIONS OPERATOR: No Patient History Past Medical History: asthma Pertinent Family History: none Social History: Denies: smoking, alcohol use, drug use Now: No Immunizations: UTD Reviewed Nursing Documentation: PMH: Agreed; PSxH: Agreed Nursing Documentation-PMH Hx Cardiac Problems: No - rheumatoid arthritis Hx Asthma: Yes Hx Cancer: No Hx Gastrointestinal Problems: Yes Hx Neurological Problems: Yes - SCIATICA Review of Systems All Other Systems: negative except mentioned in HPI Physical Exam Vital Signs Date Time Temp Pulse Resp B/P (MAP) Pulse Ox O2 Delivery O2 Flow Rate FiO2 08/28/20 03:30 98.8 100 16 160/106 (124) 97 Room Air Sp02 EP Interpretation: reviewed, normal General Appearance: no apparent distress, alert, GCS 15, non-toxic Head: normocephalic, atraumatic Eyes: bilateral eye normal inspection, bilateral eye PERRL ENT: hearing grossly normal, normal pharynx, no angioedema, normal voice, uvula midline, pharyngeal erythema Neck: full range of motion, supple/symm/no masses Respiratory: chest non-tender, lungs clear, normal breath sounds, speaking full sentences Cardiovascular #1: regular rate, rhythm, no edema Cardiovascular #2: 2+ carotid (R), 2+ carotid (L), 2+ radial (R), 2+ radial (L), 2+ dorsalis pedis (R), 2+ dorsalis pedis (L) Gastrointestinal: normal bowel sounds, non tender, soft, non-distended, no guarding, no rebound Rectal: deferred Genitourinary: normal inspection, no CVA tenderness Musculoskeletal: back normal, normal range of motion, gait/station normal, non- tender Neurologic: alert, motor strength/tone normal, oriented x3, sensory intact, responsive, speech normal Psychiatric: judgement/insight normal, memory normal, mood/affect normal, no suicidal/homicidal ideation Reflexes: 3+ bicep (R), 3+ bicep (L), 3+ tricep (R), 3+ tricep (L), 3+ knee (R), 3+ knee (L) Skin: no rash Lymphatic: no adenopathy Medical Decision Making Diagnostic Impression: Primary Impression: Pharyngitis Qualified Codes: J02.9 - Acute pharyngitis, unspecified ER Course Hospital Course 40-year-old female presents to ED complaining of sore throat Differential diagnoses include: URI, pharyngitis, otitis media Clinical course Patient placed on stretcher. After initial history, physical exam reveals a female in mild distress distress. Bilateral TM unremarkable. There is pharyngeal erythema w/o tonsillar exudates. Noted lymphadenopathy. I discussed findings with patient. Given Decadron in ED. Will discharge home. States she has a PMD. Safe for discharge with close outpatient follow-up Diagnosis - pharyngitis Stable and discharged home with prescriptions for augmentin, tylenol #3. Instructed to followup with PMD. return to ED if symptoms recur or worsen Last Vital Signs Date Time Temp Pulse Resp B/P (MAP) Pulse Ox O2 Delivery O2 Flow Rate FiO2 08/28/20 04:13 98.8 08/28/20 04:10 80 16 150/92 97 Room Air Status: improved Disposition: HOME, SELF-CARE Condition: Stable Scripts Acetaminophen With Codeine (T#3) (TYLENOL #3 TAB*) Y Tab 1 TAB ORAL Q8H PRN for For Pain, #20 TAB Prov: Jesus Simon MD 08/28/20 Amoxicillin/Potassium Clav 875-125* (AUGMENTIN 875-125 TABLET*) 1 Each Tablet 1 TAB ORAL TWICE A DAY, #14 TAB Prov: Jesus Simon MD 08/28/20 Patient Instructions: Pharyngitis, [id number] Jesus Simon MD Aug 28, 2020 22:43
== END 2020-08-28 04:10 | disposition home or self-care (01) ==
LOC: EMR 03:40
DX: J02.9 Acute pharyngitis, unspecified (principal); J45.909 Unspecified asthma, uncomplicated; M54.30 Sciatica, unspecified side
CPT/HCPCS: 96372; J1100; Z7502; 99283